=== PATIENT | female | born 1990 | race Two or more races ===

== ENCOUNTER 2024-02-13 23:23 | Emergency (ER) | payer OTHER ==
[~2024-02-13] VITALS: Ht 149.9 cm; Wt 54.4 kg
[2024-02-13] MEDS ORDERED: [UNRECOGNIZED DRUG - OTHER] PO (23:35)
[2024-02-14 03:02] LABS: HEMATOCRIT 35.9 % (36.0-45.00); HEMOGLOBIN 12.4 g/dL (12.0-15.00); MEAN CORPUSCULAR HEMOGLOBIN 30.3 pg (27.00-32.0); MEAN CORPUSCULAR HGB CONC 34.4 g/dl (32.0-36.0); PLATELET COUNT 215 K/uL (150-450); RED BLOOD COUNT 4.08 M/uL (4.00-6.00); RED CELL DISTRIBUTION WIDTH 13.2 % (11.5-14.5)
[2024-02-14 03:18] LABS: INR 0.98; PARTIAL THROMBOPLASTIN TIME 27.1 SECONDS (22.0-34.0); PROTHROMBIN TIME 10.3 SECONDS (9.0-11.5)
[2024-02-14 03:48] LABS: CALCIUM 8.9 mg/dL (8.5-10.1); CREATININE SERUM 0.66 mg/dL (0.55-1.02); GFR 104.46; POTASSIUM 3.56 mEq/L (3.5-5.1)
== END 2024-02-14 04:39 | disposition home or self-care (01) ==
LOC: ER 23:24
DX: O26.851 Spotting complicating pregnancy, first trimester (principal); Z3A.01 Less than 8 weeks gestation of pregnancy